=== PATIENT | male | born 1995 | race Caucasian/White ===

== ENCOUNTER 2019-11-08 11:34 | Emergency (ER) | payer OTHER ==
[~2019-11-08] VITALS: Ht 170.2 cm; Wt 67.6 kg
[2019-11-08 11:38] VITALS: BP 143/74
--- NOTE | 2019-11-08 11:41 | NUR ---
PT AMBULATED TO LOBBY WITH STEADY GAIT
[2019-11-08 12:04] LABS: BASOPHILS % (AUTO) 0.5 % (0.0-2.0); EOSINOPHILS # (AUTO) 0.1 K/uL (0-0.4); EOSINOPHILS % (AUTO) 1.3 % (0.0-4.0); HEMATOCRIT 48.8 % (36-52); HEMOGLOBIN 16.4 g/dL (12.0-18.0); LYMPHOCYTES # (AUTO) 1.8 K/uL (2.0-11.5); LYMPHOCYTES % (AUTO) 17.8 % (20.5-51.1); MEAN CORPUSCULAR HEMOGLOBIN 30 pg (27-31); MEAN CORPUSCULAR HGB CONC 34 g/dL (33-37); MEAN CORPUSCULAR VOLUME 88.4 fL (80-94); MONOCYTES # (AUTO) 0.8 K/uL (0.8-1.0); NEUTROPHILS # (AUTO) 7.4 K/uL (1.8-7.7); NEUTROPHILS % (AUTO) 72.4 % (42.2-75.2); PLATELET COUNT (AUTO) 338 K/uL (140-450); RED BLOOD CELL COUNT(AUTO) 5.52 MIL/uL (4.20-6.10); RED CELL DISTRIBUTION WIDTH 13.7 % (11.6-13.7); WHITE BLOOD COUNT (AUTO) 10.1 K/uL (4.8-10.8)
[2019-11-08 12:30] LABS: ALBUMIN 4.3 g/dL (3.4-5.0); ANION GAP 9.6 (8-16); CARBON DIOXIDE 29.5 mmol/L (21-32); CREATININE 0.9 mg/dL (0.6-1.3); POTASSIUM 4.1 mmol/L (3.5-5.1); TOTAL BILIRUBIN 0.3 mg/dL (0.0-1.0)
--- NOTE | 2019-11-08 12:47 | NUR ---
Patient ambulated to bed 7. RN evaluating patient at bedside.
--- NOTE | 2019-11-08 12:53 | NUR ---
PT C/O DIZZINESS AND FATIGUE SINCE YESTERDAY. REFERRED FROM URGENT CARE FOR FURTHER EVALUATIONS AND ADVANCED DIAGNOSTICS. PT REPORTS HAD EPISODE OF DIZZINESS ON LAST WEDNESDAY AND WENT AWAY; STARTED HAVING DIZZINESS, WEAKNESS, INTERMITTENT PERICARDICAL CP, SOB, AND PALPITATIONS SINCE 4 AM THIS MORNING. DENIES N/V OR RADIATION OF THE CP. PT DENIES HAVING CP AT THIS TIME. PATIENT STATES PAIN OF 0/10 AT THIS TIME; VSS; PATIENT POSITIONED FOR COMFORT; HOB ELEVATED; BEDRAILS UP X1; BED DOWN. ER MD MADE AWARE OF PT STATUS. PT IS ON MONITOR.
[2019-11-08] MEDS ORDERED: NACL 0.9% 1,000 ML IV ONE (13:30)
[2019-11-08 14:38] LABS: MAGNESIUM 2.1 mg/dL (1.8-2.4); THYROID STIMULATING HORMONE 1.77 uIU/mL (0.34-3.74)
[2019-11-08 15:09] VITALS: BP 111/54
--- NOTE | 2019-11-08 15:09 | NUR ---
Patient discharged with v/s stable. Written and verbal after care instructions given and explained. Patient verbalized understanding. Ambulatory with steady gait. All questions addressed prior to discharge. Advised to follow up with PMD.
--- NOTE | 2019-11-13 11:42 | NUR ---
Late entry. Confirmed with RN that 0.9 NS IV completed at 1440
== END 2019-11-08 15:09 | disposition home or self-care (01) ==
LOC: MED 11:34
DX: R53.1 Weakness (principal); R00.2 Palpitations
CPT/HCPCS: 36415; 80053; 82310; 83735; 84443; 85025; 96360; 99283; J7030